=== PATIENT | male | born 1995 | race Hispanic/Latino ===

== ENCOUNTER 2021-02-02 18:23 | Emergency (ER) | payer SELFPAY ==
[~2021-02-02] VITALS: Ht 157.5 cm; Wt 52.8 kg
[2021-02-02] MEDS ORDERED: KEFLEX500 MG PO ×2 (19:19→19:56)
[2021-02-02 19:28] VITALS: BP 124/78
== END 2021-02-02 19:40 | disposition home or self-care (01) | DRG 605 ==
LOC: ED 18:23
PROC: 0HQLXZZ Repair Left Lower Leg Skin, External Approach (ICD-10-PCS; principal; 2021-02-02)
DX: S81.812A Laceration without foreign body, left lower leg, initial encounter (principal); W10.9XXA Fall (on) (from) unspecified stairs and steps, initial encounter